=== PATIENT | female | born 1975 | race Caucasian/White ===

== ENCOUNTER → 2021-11-21 | Outpatient (CLI) | payer OTHER ==
--- NOTE | 2021-11-21 10:57 | Diagnostic Imaging Report ---
PROCEDURE: US Thyroid. TECHNIQUE: Multiple real-time grayscale images were obtained of the thyroid in various projections. INDICATION: Enlarged thyroid. COMPARISON: None. FINDINGS: Both thyroid lobes demonstrate smooth and homogenous background echotexture. Color flow Doppler demonstrates normal and symmetric vascularity bilaterally. The right lobe measures 5.4 cm in length , 2.0 cm AP, and 1.4 cm transverse. The left lobe measures 4.4 cm in length , 1.5 cm AP, and 1.4 cm transverse. The isthmus measures 0.6 cm. Nodules are seen throughout the thyroid, the largest in the inferior pole of the right lobe of the thyroid measuring 1.2 x 0.9 x 0.6 cm. This demonstrates a solid appearance with heterogeneous echogenicity. IMPRESSION: 1. Enlarged and multinodular thyroid. The largest nodule in the inferior pole of the right lobe of the thyroid measures up to 1.2 cm. Based on size criteria and imaging characteristics, follow-up in one year is recommended with thyroid ultrasound. Dictated by: Dictated on workstation # [id number]
== END ==
LOC: RAD 09:01
PROVIDERS: ATTEND Family Medicine
DX: E04.2 Nontoxic multinodular goiter (principal)
CPT/HCPCS: 76536

== ENCOUNTER 2021-12-05 06:07 | Outpatient (CLI) | payer OTHER ==
[~2021-12-05] VITALS: Ht 172.7 cm; Wt 109.8 kg
[2021-12-05] MEDS ORDERED: RT-ALBUINH IH (10:40)
[2021-12-05] MEDS ORDERED: AMLO-250 PO (10:40)
[2021-12-05] MEDS ORDERED: BUDE10.2 IH (10:40)
[2021-12-05] MEDS ORDERED: GABA-490 PO (10:40)
[2021-12-05] MEDS ORDERED: ATOR20TA66 PO (10:40)
== END 2021-12-05 10:42 | disposition home or self-care (01) ==
LOC: PREOP 06:07
PROVIDERS: ATTEND Surgery
DX: Z01.818 Encounter for other preprocedural examination (principal)

== ENCOUNTER 2021-12-17 08:46 | Day surgery (SDC) | payer OTHER ==
[~2021-12-17] VITALS: Ht 172.7 cm; Wt 109.8 kg
[~2021-12-17 08:46] MED LIST: AMLO-250 PO; ATOR20TA66 PO; BUDE10.2 IH; GABA-490 PO; RT-ALBUINH IH
[2021-12-17] MEDS ORDERED: HURRICAINE EXT TUBE (BENZOCAINE) XX PRN (09:00)
[2021-12-17 09:05] VITALS: BP 125/83
[2021-12-17] MEDS ORDERED: LACTATED RINGERS 1,000 ML IV STA (09:05)
--- NOTE | 2021-12-17 09:10 | Progress Note-Pre Operative ---
Pre-Operative Progress Note Date of Available H&P: Nov 27, 2021 Date H&P Reviewed: Dec 17, 2021 Time H&P Reviewed: 09:09 History & Physical: H&P Reviewed, Patient Examed, No changes noted Pre-Operative Diagnosis: GERD, screening colonoscopy DOTTIE CAMPUZANO DO Dec 17, 2021 09:10
[2021-12-17] MEDS ORDERED: MIDAZOLAM 2 MG/2 ML (VERSED) VIAL ONE (11:04)
[2021-12-17] MEDS ORDERED: PROPOFOL INJECTION 50 ML IV ONE (11:05)
[2021-12-17 11:35] VITALS: BP 93/55
[2021-12-17 11:40] VITALS: BP 104/60
[2021-12-17 11:45] VITALS: BP 103/76
--- NOTE | 2021-12-17 12:14 | Progress Note-Post Operative ---
Post-Operative Progess Note Surgeon (s)/1 Year Olds Preschool Teacher (s) Surgeon DOTTIE CAMPUZANO DO 1 Year Olds Preschool Teacher: Edilberto Ponce, MSIII Pre-Operative Diagnosis GERD, screening colonoscopy Post-Operative Diagnosis Gastritis with bleeding Hiatal hernia Gastric polyp Colon polyps diverticula int hemorrhoids Procedure & Operative Findings Date of Procedure 12/17/21 Procedure Performed/Findings EGD with bx EGD with removal gastric polyp hot bx Colon with hot bx PROCEDURE NOTE: After informed consent was obtained, the patient was brought to the endoscopy suite, placed in bed in left lateral decubitus position. She was administered IV sedation by the FOUNDRY METALLURGIST who then monitored vitals the entire time, heart rate, blood pressure and pulse ox and the scope was inserted down the mouth through the esophagus into the stomach. On the way down, noted some mild esophagitis, took a picture, pushed into the stomach and noted gastritis with bleeding. Then pushed past the antrum and into the duodenum; duodenum looked good. Pulled back and did a biopsy of the antrum, then retroflexed the scope, saw a small hiatal hernia and took a picture of this. Next, pulled the scope into the GE junction, took another picture of the hiatal hernia and then did a biopsy of the GE junction. Pushed the scope back in and did a biopsy of the body of the stomach and finally suctioned all the air out of the stomach. At this point pulled the scope up the esophagus and out the mouth. Switched camera, switched gloves, went down \ below and started the colonoscopy. Pushed all the way into about 160 cm to get all the way to cecum, took a picture of the appendiceal orifice, noted the ileocecal valve. I also saw some diverticula on the way in and took a picture of them. Then slowly withdrew the scope, insufflating to look circumferentially at the dupree starting in the cecum, up the ascending colon to the hepatic flexure, then down the transverse colon, to the splenic flexure, into the descending colon, down into the sigmoid and finally into the rectum. In the rectum I found two polyps, one up high and one near the hemorrhoids. I removed both with hot biopsy. Finally, retroflexed in the rectal vault, saw some minimal internal hemorrhoids and took a picture of them. The patient tolerated the procedure and she recovered in the endoscopy suite. Recommended for repeat colonoscopy in 5 years Anesthesia Type IV sedation by FOUNDRY METALLURGIST Estimated Blood Loss Estimated blood loss (mL): scant Specimens/Packing Specimens Removed antral bx body of stomach bx GE jxn bx Gastric polyp Rectal polyp x 2 DOTTIE CAMPUZANO DO Dec 17, 2021 12:14
--- NOTE | 2021-12-17 12:16 | Endoscopy Discharge Instruct ---
Endo Procedure/Findings Findings 1.: Hiatal Hernia, Gastritis (with bleeding) 2.: Other Findings (Gastric polyp) 3.: Polyp 4.: Diverticulosis, Internal Hemorrhoids Discharge Instructions - Activity: You might feel a little sleepy until tomorrow. This is due to the medicine you received to relax you. Until tomorrow, you should: NOT drive a car, operate machinery or power tools. NOT drink any alcoholic beverages. NOT make any important decisions or sign importortant papers. Do not return to work until tomorrow, unless otherwise instructed. Resume previous activities tomorrow. Diet: Start by taking liquids. If you tolerate liquids, advance to solid food. 1.: EGD in 3 years 2.: Colonscopy in 5 years Notify Physician - If you experience excessive bleeding, unusual abdominal pain, fever, or chest pain, contact your doctor immediately. DOTTIE CAMPUZANO DO Dec 17, 2021 12:16
[2021-12-17 12:19] VITALS: BP 103/76
--- NOTE | 2021-12-17 14:08 | Anesthesia-General Post-Op ---
MAC Patient Condition Mental Status/LOC: Same as Preop Cardiovascular: Satisfactory Nausea/Vomiting: Absent Respiratory: Satisfactory Pain: Controlled Complications: Absent Post Op Complications Complications None Follow Up Care/Instructions Patient Instructions None needed. Anesthesiology Discharge Order Discharge Order Patient is doing well, no complaints, stable vital signs, no apparent adverse anesthesia problems. No complications reported per nursing. JESSICA PRAKASH CRNA Dec 17, 2021 14:08
== END 2021-12-17 12:29 | disposition home or self-care (01) ==
LOC: ENDO 08:46
PROVIDERS: ATTEND Surgery
DX: D12.8 Benign neoplasm of rectum (principal); K62.1 Rectal polyp; K22.70 Barrett's esophagus without dysplasia; K31.7 Polyp of stomach and duodenum; F17.210 Nicotine dependence, cigarettes, uncomplicated; E66.01 Morbid (severe) obesity due to excess calories; Z68.37 Body mass index [BMI] 37.0-37.9, adult; Z79.899 Other long term (current) drug therapy; K44.9 Diaphragmatic hernia without obstruction or gangrene; K29.60 Other gastritis without bleeding; K64.8 Other hemorrhoids; K57.30 Diverticulosis of large intestine without perforation or abscess without bleeding

== ENCOUNTER → 2022-02-06 | Outpatient (CLI) | payer OTHER ==
[~2022-02-06] MED LIST changes: +ALBU8.5H6 IH; +GADOTERATE 0.5 MMOL/ML (CLARISCAN) 20 ML VIAL IV ONE; -RT-ALBUINH IH
--- NOTE | 2022-02-06 14:54 | Diagnostic Imaging Report ---
EXAMINATION: MR imaging brain with and without contrast. TECHNIQUE: Multiplanar, multisequence MR imaging of the brain was performed with and without contrast. HISTORY: History of prior pituitary tumor surgery. Follow-up. COMPARISON: None available. FINDINGS: No acute ischemia, mass, or hemorrhage. Scattered T2 hyperintense signal is seen in the periventricular and subcortical white matter, greatest in the left parietal lobe. The ventricles, cortical sulci, and basilar cisterns are symmetric and unremarkable. The major intracranial flow voids are intact. There is scant tissue within the inferior aspect of the sella. There is a somewhat thickened appearance of the pituitary infundibulum which is midline. No evidence of soft tissue mass in the pituitary. The cavernous sinuses are unremarkable. No evidence of mass effect on the optic nerves or optic chiasm. The brainstem and posterior fossa are unremarkable. Retained secretions are seen in the bilateral maxillary and ethmoid sinuses. The mastoid air cells demonstrate normal signal characteristics. The globes and orbits are symmetric and unremarkable. The scalp and calvarium have a normal appearance. IMPRESSION: 1. No acute ischemia, mass, or hemorrhage. No abnormal enhancement. 2. Postsurgical changes of mass debulking in the pituitary. No evidence of mass recurrence. No evidence of local invasion or mass effect on the adjacent structures. 3. Scattered T2 hyperintense signal, greatest in the left parietal lobe. Findings may represent sequelae of migraine and/or chronic microvascular disease. This would be a somewhat atypical appearance for demyelination although that has not completely excluded. 4. Mild paranasal sinus disease involving the bilateral maxillary and ethmoid sinuses. Dictated by: Dictated on workstation # [id number]
== END ==
LOC: RAD 12:32
PROVIDERS: ATTEND Internal Medicine Endocrinology, Diabetes & Metabolism
DX: E24.9 Cushing's syndrome, unspecified (principal); J34.89 Other specified disorders of nose and nasal sinuses
CPT/HCPCS: 70553

== ENCOUNTER 2022-12-11 09:51 | Outpatient (CLI) | payer OTHER ==
[~2022-12-11] VITALS: Ht 172.7 cm; Wt 113.6 kg
[~2022-12-11 09:51] MED LIST changes: -GADOTERATE 0.5 MMOL/ML (CLARISCAN) 20 ML VIAL IV ONE
[2022-12-11] MEDS ORDERED: PANT40TA52 PO (15:04)
[2022-12-11] MEDS ORDERED: FLUT12AE18 IH (15:10)
== END 2022-12-11 15:13 | disposition home or self-care (01) ==
LOC: PREOP 09:51
PROVIDERS: ATTEND Surgery
DX: Z01.818 Encounter for other preprocedural examination (principal)

== ENCOUNTER 2022-12-23 09:38 | Day surgery (SDC) | payer OTHER ==
[~2022-12-23] VITALS: Ht 172 cm; Wt 113.6 kg
[~2022-12-23 09:38] MED LIST changes: +FLUT12AE18 IH; -GABA-490 PO; +GABA-491 PO; +PANT40TA52 PO
--- NOTE | 2022-12-23 10:01 | Progress Note-Pre Operative ---
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
[2022-12-23] MEDS ORDERED: LACTATED RINGERS 1,000 ML 1,000 ML IV STA (10:05)
[2022-12-23] MEDS ORDERED: HURRICAINE EXT TUBE (BENZOCAINE) XX PRN (10:15)
[2022-12-23 10:20] VITALS: BP 129/85
[2022-12-23] MEDS ORDERED: MIDAZOLAM INJ 2 MG/2 ML VIAL ONE (10:56)
[2022-12-23 11:10] VITALS: BP 84/50
--- NOTE | 2022-12-23 11:11 | Progress Note-Post Operative ---
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 She was administered IV sedation by the PASTRY DECORATOR who then monitored vitals the entire time, heart rate, blood pressure and pulse ox and the scope was inserted down the mouth through the esophagus into the stomach. On the way down, noted some mild esophagitis, took a picture, pushed into the stomach, pushed past the antrum into the duodenum. Duodenum looked good. Pulled back, noted mild gastritis and did a biopsy of the antrum and then retroflexed the scope. I saw a small grade II AFS hiatal hernia, took a picture of this and then pulled the scope into the GE junction. I took another picture and then did a biopsy of the GE junction. The GE junction looked much better than last time. Pushed the scope back into the stomach, suctioned all the air out of the stomach. At this point pulled the scope up the esophagus and out the mouth. The patient tolerated the procedure, and she recovered in endoscopy suite. Anesthesia Type IV sedation by PASTRY DECORATOR Estimated Blood Loss Estimated blood loss (mL): scant Specimens/Packing Specimens Removed antral bx GE jxn bx DOTTIE CAMPUZANO DO Dec 23, 2022 11:11
--- NOTE | 2022-12-23 11:12 | Endoscopy Discharge Instruct ---
Endo Procedure/Findings Findings 1.: Gastritis 2.: Hiatal Hernia Discharge Instructions - Activity: You might feel a little sleepy until tomorrow. This is due to the medicine you received to relax you. Until tomorrow, you should: NOT drive a car, operate machinery or power tools. NOT drink any alcoholic beverages. NOT make any important decisions or sign importortant papers. Do not return to work until tomorrow, unless otherwise instructed. Resume previous activities tomorrow. Diet: Start by taking liquids. If you tolerate liquids, advance to solid food. 1.: EGD in 3 years Notify Physician - If you experience excessive bleeding, unusual abdominal pain, fever, or chest pain, contact your doctor immediately. Follow-Up: Other Follow up in my office in a week DOTTIE CAMPUZANO DO Dec 23, 2022 11:12
[2022-12-23 11:15] VITALS: BP 83/54
[2022-12-23 11:20] VITALS: BP 83/54
[2022-12-23 11:36] VITALS: BP 83/54
--- NOTE | 2022-12-23 12:16 | Anesthesia-General Post-Op ---
MAC Patient Condition Mental Status/LOC: Same as Preop Cardiovascular: Satisfactory Nausea/Vomiting: Absent Respiratory: Satisfactory Pain: Controlled Complications: Absent Post Op Complications Complications None Follow Up Care/Instructions Patient Instructions None needed. Anesthesiology Discharge Order Discharge Order Patient is doing well, no complaints, stable vital signs, no apparent adverse anesthesia problems. No complications reported per nursing. JESSICA PRAKASH CRNA Dec 23, 2022 12:16
== END 2022-12-23 11:33 | disposition home or self-care (01) ==
LOC: ENDO 09:38
PROVIDERS: ATTEND Surgery
DX: K22.70 Barrett's esophagus without dysplasia (principal); K21.00 Gastro-esophageal reflux disease with esophagitis, without bleeding; K29.70 Gastritis, unspecified, without bleeding; K44.9 Diaphragmatic hernia without obstruction or gangrene; F17.210 Nicotine dependence, cigarettes, uncomplicated; E66.9 Obesity, unspecified; Z68.38 Body mass index [BMI] 38.0-38.9, adult; Z79.899 Other long term (current) drug therapy; Z90.49 Acquired absence of other specified parts of digestive tract
CPT/HCPCS: 88305